=== PATIENT | male | born 1995 | race Two or more races ===

== ENCOUNTER 2024-02-16 19:51 | Emergency (ER) | payer BC ==
[~2024-02-16] VITALS: Ht 182.9 cm; Wt 74.8 kg
[2024-02-16 20:05] VITALS: BP 141/74; TEMP 98; O2SAT 99
[2024-02-16] MEDS ORDERED: FLUORESCEIN SODIUM OPHTH 1 EA STRIP ONE (20:11)
[2024-02-16] MEDS ORDERED: TETRAcaine 5 ML BOTTLE ONE (20:11)
[2024-02-16] MEDS: TETRACAINE HCL 2% OPHTHALIC 30 ML BOTTLE EACHEYE ONE (20:15)
[2024-02-16] MEDS: FLUORESCEIN SODIUM OPHTH 1 EA STRIP OP ONE (20:15)
== END 2024-02-16 20:37 | disposition home or self-care (01) ==
LOC: ER 19:54
DX: T15.12XA Foreign body in conjunctival sac, left eye, initial encounter (principal); I48.91 Unspecified atrial fibrillation; W44.8XXA Other foreign body entering into or through a natural orifice, initial encounter; Y93.89 Activity, other specified; Y92.89 Other specified places as the place of occurrence of the external cause; Y99.8 Other external cause status